=== PATIENT | male | born 1955 | race Caucasian/White ===

== ENCOUNTER → 2017-04-08 | Outpatient (CLI) | payer MEDICARE, MEDICAID ==
[~2017-04-08] MED LIST: ALBU18HF INH; AMOX250S20 PO; ASCO100072 PO; ASPI-621 PO; ATOR40TA PO; CHOL500045 PO; FLUT1DIS IH; HYDR-3237 PO; METO25TA35 PO; METR250T PO; NITR0.4T SL; OMEG1CAP23 PO; OMEP10CA4 PO; ONDA4TAB7 PO; POLY17PO5 PO; ROSU5TAB PO; TICA90TA PO; VITA1CAP PO
== END | disposition home or self-care (01) ==
LOC: CVU 07:34
PROVIDERS: ATTEND Internal Medicine Cardiovascular Disease
DX: I25.10 Atherosclerotic heart disease of native coronary artery without angina pectoris (principal)
CPT/HCPCS: C8929

== ENCOUNTER → 2017-06-18 | Outpatient (CLI) | payer MEDICARE, MEDICAID ==
[~2017-06-18] MED LIST changes: +CLOP75TA PO; +LACT1CAP40 PO; +TRAM50TA2 PO
== END | disposition home or self-care (01) ==
LOC: STAR 07:46
PROVIDERS: ATTEND Surgery
DX: Z01.818 Encounter for other preprocedural examination (principal); I25.2 Old myocardial infarction
CPT/HCPCS: 93005

== ENCOUNTER 2017-06-24 07:30 | Day surgery (SDC) | payer MEDICARE, MEDICAID ==
[~2017-06-24] VITALS: Ht 188 cm; Wt 124.0 kg
[~2017-06-24 07:30] MED LIST changes: +BUPIVACAINE/PF 0.5% ONE; +EPINEPHRINE 1 MG/ML, 1ML ONE
[2017-06-24 08:47] VITALS: BP 127/87
[2017-06-24] MEDS ORDERED: LACTATED RINGERS 1,000 ML IV SCH (09:09)
[2017-06-24] MEDS ORDERED: MIDAZOLAM 1 MG/ML, 2ML ONE (10:36)
[2017-06-24] MEDS ORDERED: FENTANYL PF 250 MCG/5ML ONE (10:37)
[2017-06-24] MEDS ORDERED: ONDANSETRON 2MG/ML, 2ML ONE (10:46)
[2017-06-24] MEDS ORDERED: DEXAMETHASONE 4 MG/ML, 1ML ONE (10:46)
[2017-06-24] MEDS ORDERED: KETOROLAC 30 MG/1 ML ONE (10:46)
[2017-06-24] MEDS ORDERED: ONDANSETRON 2MG/ML, 2ML IVPush PRN (11:00)
[2017-06-24] MEDS ORDERED: PROMETHAZINE 12.5 MG SUPP PR PRN (11:00)
[2017-06-24] MEDS ORDERED: morphine SULFATE 10 MG/ML, 1ML IV PRN (11:00)
[2017-06-24] MEDS ORDERED: PROMETHAZINE 25 MG/ML, 1ML IV PRN (11:00)
[2017-06-24] MEDS ORDERED: FENTANYL PF 100 MCG/2ML IV PRN (11:00)
[2017-06-24] MEDS ORDERED: OXYcodone 5 MG/5 ML ORAL.SOL UDC PO PRN (11:00)
[2017-06-24] MEDS ORDERED: MEPERIDINE/PF 25MG/0.5ML IVPush PRN (11:00)
[2017-06-24] MEDS ORDERED: ACETAMINOPHEN 325 MG TABLET PO PRN (11:00)
[2017-06-24] MEDS ORDERED: MIDAZOLAM 1 MG/ML, 2ML IV PRN (11:00)
[2017-06-24] MEDS ORDERED: LABETALOL 5MG/ML, 20ML IV PRN (11:00)
[2017-06-24] MEDS ORDERED: PROPOFOL 10 MG/ML, 20ML ONE (11:02)
[2017-06-24] MEDS ORDERED: SUCCINYLCHOLINE 20 MG/ML, 10ML ONE ×2 (11:02)
== END 2017-06-24 13:30 ==
LOC: OUT 07:30
PROVIDERS: ATTEND Surgery
DX: K42.9 Umbilical hernia without obstruction or gangrene (principal); Z98.890 Other specified postprocedural states; Z87.39 Personal history of other diseases of the musculoskeletal system and connective tissue; Z79.82 Long term (current) use of aspirin; Z72.89 Other problems related to lifestyle; Z87.891 Personal history of nicotine dependence; I25.10 Atherosclerotic heart disease of native coronary artery without angina pectoris; Z88.5 Allergy status to narcotic agent
CPT/HCPCS: 49585; C1781; J0171; J0330; J1100; J1885; J2250; J2405; J2704; J3010; J3490

== ENCOUNTER → 2017-07-15 | Outpatient (CLI) | payer MEDICAID, MEDICARE ==
[~2017-07-15] MED LIST changes: -BUPIVACAINE/PF 0.5% ONE; -EPINEPHRINE 1 MG/ML, 1ML ONE; +REGADENOSON 0.4 MG/5 ML SYRINGE ONE
== END | disposition home or self-care (01) ==
LOC: CVU 09:35
PROVIDERS: ATTEND Internal Medicine Cardiovascular Disease
DX: I25.10 Atherosclerotic heart disease of native coronary artery without angina pectoris (principal); I86.8 Varicose veins of other specified sites; M79.604 Pain in right leg; M79.605 Pain in left leg
CPT/HCPCS: 78452; 93017; 93970; A9502; J2785

== ENCOUNTER 2018-11-24 06:39 | Outpatient (CLI) | payer MEDICAID, MEDICARE ==
[~2018-11-24 06:39] MED LIST changes: -ASPI-621 PO; +ASPI81TA45 PO; -NITR0.4T SL; +NITR0.4T41 SL; -OMEP10CA4 PO; +OMEP10CA5 PO; -REGADENOSON 0.4 MG/5 ML SYRINGE ONE
== END 2018-11-24 23:59 | disposition home or self-care (01) ==
LOC: CVU 06:39
PROVIDERS: ATTEND Internal Medicine Cardiovascular Disease
DX: I25.10 Atherosclerotic heart disease of native coronary artery without angina pectoris (principal); I25.2 Old myocardial infarction; E78.5 Hyperlipidemia, unspecified; Z87.891 Personal history of nicotine dependence
CPT/HCPCS: 93306

== ENCOUNTER → 2019-06-18 | Outpatient (CLI) | payer MEDICAID, MEDICARE ==
[~2019-06-18] MED LIST changes: +REGADENOSON 0.4 MG/5 ML SYRINGE ONE
== END | disposition home or self-care (01) ==
LOC: CFH 07:20
PROVIDERS: ATTEND Internal Medicine Cardiovascular Disease
DX: Z01.810 Encounter for preprocedural cardiovascular examination (principal); M62.89 Other specified disorders of muscle
CPT/HCPCS: 78452; 93017; A9502; J2785

== ENCOUNTER 2019-06-29 07:12 | Day surgery (SDC) | payer MEDICARE ==
[~2019-06-29] VITALS: Ht 185.4 cm; Wt 118.2 kg
[~2019-06-29 07:12] MED LIST changes: -REGADENOSON 0.4 MG/5 ML SYRINGE ONE
[2019-06-29 07:51] VITALS: BP 120/73
[2019-06-29] MEDS ORDERED: ASPI81TA45 PO (08:00)
[2019-06-29 08:37] LABS: BASOPHILS # (AUTO) 0.03 x10^3/uL (0-0.1); BASOPHILS % (AUTO) 1 % (0-1); EOSINOPHILS % (AUTO) 1 % (1-7); LYMPHOCYTES # (AUTO) 1.85 x10^3/uL (1-3.4); LYMPHOCYTES % (AUTO) 27 % (22-44); MD NO; MEAN CORPUSCULAR HEMOGLOBIN 33.2 pg (27.5-34.5); MEAN CORPUSCULAR HGB CONC 33.1 g/dL (33.2-36.2); MEAN CORPUSCULAR VOLUME 100.2 fL (81-97); MEAN PLATELET VOLUME 9.1 fL (7.4-10.4); MONOCYTES # (AUTO) 0.73 x10^3/uL (0.2-0.8); MONOCYTES % (AUTO) 11 % (2-9); NEUTROPHILS # (AUTO) 4.08 x10^3/uL (1.8-6.8); NEUTROPHILS % (AUTO) 60 % (42-75); PLATELET COUNT 173 x10^3/uL (130-400); RED BLOOD COUNT 4.43 x10^6/uL (4.38-5.82); RED CELL DISTRIBUTION WIDTH 13.3 % (9.4-14.8)
[2019-06-29 08:48] LABS: ANION GAP 3 mmol/L (5-15); CALCIUM 8.8 mg/dL (8.5-10.1); CHLORIDE 110 mmol/L (98-107)
[2019-06-29] MEDS ORDERED: FENTANYL PF 100 MCG/2ML ONE (09:23)
[2019-06-29] MEDS ORDERED: LIDOCAINE 2%, 20ML ONE (09:23)
[2019-06-29] MEDS ORDERED: MIDAZOLAM 1 MG/ML, 5ML ONE (09:23)
[2019-06-29] MEDS ORDERED: ONDANSETRON 2MG/ML, 2ML ONE (09:37)
== END 2019-06-29 12:56 | disposition home or self-care (01) ==
LOC: CACL 07:12
PROVIDERS: ATTEND Internal Medicine Cardiovascular Disease
DX: R94.39 Abnormal result of other cardiovascular function study (principal); I25.118 Atherosclerotic heart disease of native coronary artery with other forms of angina pectoris; I25.2 Old myocardial infarction; E78.5 Hyperlipidemia, unspecified; J45.909 Unspecified asthma, uncomplicated; G47.33 Obstructive sleep apnea (adult) (pediatric); E66.9 Obesity, unspecified; Z68.35 Body mass index [BMI] 35.0-35.9, adult; Z79.82 Long term (current) use of aspirin; Z79.02 Long term (current) use of antithrombotics/antiplatelets; Z79.899 Other long term (current) drug therapy; Z87.891 Personal history of nicotine dependence; Z88.5 Allergy status to narcotic agent; Z98.890 Other specified postprocedural states
CPT/HCPCS: 36415; 80048; 85025; 93458; 99156; C1760; C1769; C1894; J2250; J2405; J3010; Q9967

== ENCOUNTER → 2020-05-30 | Outpatient (CLI) | payer MEDICARE | END | disposition home or self-care (01) | LOC: RAD 06:12 | PROVIDERS: ATTEND Family Medicine | DX: R13.10 Dysphagia, unspecified (principal); Y84.4 Aspiration of fluid as the cause of abnormal reaction of the patient, or of later complication, without mention of misadventure at the time of the procedure | CPT/HCPCS: 74240 ==